=== PATIENT | female | born 1975 | race Caucasian/White ===

== ENCOUNTER → 2016-06-29 | Outpatient (CLI) | payer OTHER | LOC: LAB 11:52 | DX: J30.89 Other allergic rhinitis (principal); T78.3XXA Angioneurotic edema, initial encounter; E55.9 Vitamin D deficiency, unspecified; E06.2 Chronic thyroiditis with transient thyrotoxicosis; L50.9 Urticaria, unspecified | CPT/HCPCS: 36415; 82306; 82784; 82785; 86003; 86160; 86161; 86162; 86376; 86800 ==

== ENCOUNTER 2020-09-27 12:37 | Emergency (ER) | payer OTHER ==
[2020-09-27 13:53] LABS: HEMOGLOBIN 14.3 gm/dl (12.3-15.3); RED BLOOD COUNT 5.11 M/UL (4.00-5.10); WHITE BLOOD COUNT 12.7 K/UL (4.5-11.0)
[2020-09-27 14:53] LABS: BUN/CREATININE RATIO 19 (0-10)
== END 2020-09-27 17:04 | disposition home or self-care (01) ==
LOC: ER1 12:37
PROVIDERS: Physician Assistant
DX: R07.89 Other chest pain (principal); R20.0 Anesthesia of skin; E11.9 Type 2 diabetes mellitus without complications; I10 Essential (primary) hypertension; M06.9 Rheumatoid arthritis, unspecified; F17.200 Nicotine dependence, unspecified, uncomplicated; Z90.710 Acquired absence of both cervix and uterus
CPT/HCPCS: 71045; 80053; 82550; 82553; 83874; 84484; 85025; 93005; 99284

== ENCOUNTER → 2020-10-22 | Outpatient (CLI) | payer BC | LOC: KOH-I 09:28 | DX: E05.00 Thyrotoxicosis with diffuse goiter without thyrotoxic crisis or storm (principal) | CPT/HCPCS: 70480 ==

== ENCOUNTER → 2020-12-09 | Outpatient (CLI) | payer BC | LOC: HEART 5 08:14 | DX: I10 Essential (primary) hypertension (principal); E78.00 Pure hypercholesterolemia, unspecified; R55 Syncope and collapse; R07.9 Chest pain, unspecified; E11.9 Type 2 diabetes mellitus without complications | CPT/HCPCS: 78452; 93306; A9502; J2785 ==